=== PATIENT | male | born 1940 | race African-American/Black ===

== ENCOUNTER 2023-02-22 14:05 | Emergency (ER) | payer OTHER ==
[~2023-02-22] VITALS: Ht 165.1 cm; Wt 68.0 kg
[2023-02-22 14:35] VITALS: BP 108/79; PULSE 65; RESP 18; TEMP 98.1; O2SAT 98
[2023-02-22 15:13] LABS: BASOPHILS # (AUTO) 0.1 K/uL (0.00-0.22); BASOPHILS % (AUTO) 0.8 % (0.0-2.0); EOSINOPHILS # (AUTO) 1.1 K/uL (0-0.4); EOSINOPHILS % (AUTO) 16.1 % (0.0-4.0); HEMATOCRIT 36.7 % (36-52); HEMOGLOBIN 12.3 g/dL (12.0-18.0); LYMPHOCYTES # (AUTO) 1.7 K/uL (2.0-11.5); LYMPHOCYTES % (AUTO) 24.2 % (20.5-51.1); MEAN CORPUSCULAR HEMOGLOBIN 32 pg (27-31); MEAN CORPUSCULAR HGB CONC 33 g/dL (33-37); MEAN CORPUSCULAR VOLUME 95.8 fL (80-94); MONOCYTES # (AUTO) 0.5 K/uL (0.8-1.0); MONOCYTES % (AUTO) 7.1 % (1.7-9.3); NEUTROPHILS # (AUTO) 3.6 K/uL (1.8-7.7); NEUTROPHILS % (AUTO) 51.8 % (42.2-75.2); PLATELET COUNT (AUTO) 204 K/uL (140-450); RED BLOOD CELL COUNT(AUTO) 3.83 MIL/uL (4.20-6.10); RED CELL DISTRIBUTION WIDTH 13.2 % (11.6-13.7)
[2023-02-22 15:35] LABS: ALANINE AMINOTRANSFERASE 32 U/L (12-78); ALBUMIN 3.4 g/dL (3.4-5.0); ALKALINE PHOSPHATASE 95 U/L (50-136); ASPARTATE AMINOTRANSFERASE 32 U/L (15-37); CALCIUM 8.9 mg/dL (8.5-10.1); CARBON DIOXIDE 26.5 mmol/L (21-32); CHLORIDE 105 mmol/L (98-107); CREATININE 1.5 mg/dL (0.6-1.3); GLUCOSE 89 mg/dL (74-106); POTASSIUM 4.5 mmol/L (3.5-5.1); SODIUM SERUM 140 mmol/L (136-145); TOTAL BILIRUBIN 0.7 mg/dL (0.0-1.0); TOTAL PROTEIN, SERUM 7.8 g/dL (6.4-8.2); UREA NITROGEN, BLOOD 18 mg/dL (7-18)
[2023-02-22 16:32] VITALS: BP 101/76; PULSE 63; RESP 18; TEMP 98.1; O2SAT 98
== END 2023-02-22 16:30 | disposition home or self-care (01) ==
LOC: MED 14:05
DX: R55 Syncope and collapse (principal); R42 Dizziness and giddiness; I10 Essential (primary) hypertension
CPT/HCPCS: 36415; 71045; 80053; 83880; 84484; 85025; 93005; 99285